=== PATIENT | male | born 1965 | race Caucasian/White ===

== ENCOUNTER 2018-12-11 12:04 | Emergency (ER) | payer OTHER, SELFPAY ==
[2018-12-11 12:05] VITALS: BP 133/77; PULSE 91; RESP 16; TEMP 36.6; O2SAT 97; BMI 23.6
--- NOTE | 2018-12-11 13:14 | VDLE_ITS ---
Reason For Study: LLE PAIN RIGHT LEFT CFV is compressible, spontaneous, phasic, GSV is normal. competent and demonstrates normal CFV is compressible, spontaneous, phasic, augmentation. competent, and demonstrates normal Procedure augmentation. Exam performed portable in ED. FV is compressible, spontaneous, phasic, The exam was diagnostic. competent and demonstrates normal A preliminary report was called and/or faxed augmentation. to ED @ 2:30 pm. POP V is compressible, spontaneous, phasic, competent and demonstrates normal augmentation. T/P Trunk is compressible. PTV is compressible. LT PerV is compressible. Interpretation Summary There is no evidence of left lower extremity deep vein thrombosis. Left great saphenous vein appears patent and compressible segmentally. Patent and compressible right common femoral vein Ordering Physician: Gabo Leon Referring Physician: NO PCP Performed By: Caterina Anderson, LIBERTY, RVT
--- NOTE | 2018-12-11 13:40 | RAD_ITS ---
STUDY: X-RAY - LEFT KNEE REASON FOR EXAM: Male, 52 years old. Knee pain TECHNIQUE: 4 view(s) of the knee. COMPARISON: None. FINDINGS: Normal visualized distal femur. Normal visualized proximal tibia and fibula. Normal proximal tibiofibular articulation. Normal medial femorotibial compartment. Normal lateral femorotibial compartment. Normal patellofemoral articulation. The soft tissue structures are unremarkable. RAD/Knee 4 or More Views IMPRESSION: Normal x-ray examination of the knee. Electronically Signed: Josue Chun MD at 14:01 EDT Tel , Service support ,
--- NOTE | 2018-12-11 15:29 | ED.DCSUM_ITS ---
- ER Visit Summary Date of Service: 12/11/18 Chief Complaint: [Left leg pain] History of Present Illness: The patient is a 52 M [presents to the emergency department with complaint of pain in his left leg for about a week and a half. Patient states that he fell a year ago and broke his left hip but has had no recent injury. Patient complains of diffuse pain to his knee down to his foot. Today he noticed some numbness and tingling to his foot. Patient denies any pain in his back. He denies any sciatic pain although he has had sciatica in the past and has had back surgery for it. Patient states that he started working 10 hours a day and is been on his feet for quite a bit. He denies any weakness in the extremity. Patient denies any injury to his leg.] Physical Examination: [HEENT-PERRLA, EOMI. Cranial nerves II through XII grossly intact. TMs clear. Mucous membranes moist. No adenopathy. Cardiovascular-regular rate and rhythm without murmur or ectopy Lungs-clear to auscultation, chest wall stable without crepitus or subcu emphysema Abdomen-normoactive bowel sounds, soft, nontender, no rebound or rigidity, no peritoneal signs. Extremities-intact ?4, normal range of motion, normal pulses, atraumatic. Left leg-patient has some mild diffuse tenderness palpation of the knee. There is no erythema or warmth or effusion noted. Patient has normal popliteal, dorsal pedal, and posterior tibial pulses. Patient has normal cap refill and sensation.] Test Results: [Venous Doppler of the left lower extremity was negative for DVT. Patient also had x-rays of the left knee which were normal.] Emergency Department Course and Treatment: [] Treatment Plan: [Patient will be given a prescription for Larue for pain. Patient referred to primary care physician for follow-up.] Disposition: [Discharged home stable condition] Impression: [Left knee pain-etiology uncertain Paresthesias left foot] This note was generated with [employer] dictation software. It may contain incorrect words, spelling, and punctuation that were not noted in review of the chart prior to signing ED Disposition - Plan for ED Patient: Referrals: Care Physician,No Primary [Primary Care Provider] -
--- NOTE | 2018-12-11 15:32 | DCINST.ED_ITS ---
ED Disposition - Plan for ED Patient: Instructions: KNEE PAIN, Uncertain Cause, Paraesthesias Prescriptions: Hydrocodone Bitart/Apap 5-325 [[place] 5MG-325MG] 1 tab PO Q4H PRN PRN 2 Days #10 tab PRN Reason: Pain Prescription Printed Referrals: Care Physician,No Primary [Primary Care Provider] - Chip Michael MD [STAFF PHYSICIAN] - 3-5 Days
== END 2018-12-11 15:48 | disposition home or self-care (01) ==
PROVIDERS: Emergency Provider Emergency Medicine
DX: M25.562 Pain in left knee (principal); R20.2 Paresthesia of skin; Z72.0 Tobacco use
CPT/HCPCS: 73564; 93971; 99282

== ENCOUNTER 2022-01-29 16:11 | Emergency (ER) | payer BC, SELFPAY ==
[2022-01-29 16:13] VITALS: BP 135/101; PULSE 66; RESP 18; TEMP 37.2; O2SAT 98; BMI 24.3
--- NOTE | 2022-01-29 16:22 | NURSING ---
NO OLD EKGS
--- NOTE | 2022-01-29 16:30 | EDS_ITS ---
HPI History of Present Illness Chief Complaint: Syncope Narrative Narrative: 56-year-old male presenting with an episode of syncope that happened today. He states he called into work because he was not feeling well. He describes lightheadedness and a little bit of nausea. He did not have any chest pain. He states he blacked out while walking to the bathroom. He woke up and did not feel as if anything hurt. Patient does not feel short of breath. Has not had a fever, chills, body aches. He denies any cardiac problems. He states he has a mild cough but its his typical smoker's cough. He is not short of breath. He states he does still have some residual lightheadedness but does not describe it as vertiginous in nature. He states he does not go to a regular doctor often at all. He is not been in years. He states other than today feeling nauseous has been eating and drinking without difficulty. He states he does not eat like he should but he is able to eat. He is making urine and stool. [facility] Medical History History of hip fracture Home Medications lansoprazole 30 mg capsule,delayed release 30 mg PO DAILY 12/11/18 [History Last Taken Unknown] Allergy/AdvReac Type Severity Reaction Status Date / Time No Known Allergies Allergy Verified 01/29/22 16:12 Social History Smoking Status: Current every day smoker tobacco type: cigarettes ROS ROS ED Constitutional Constitutional ED: Denies chills or fever(s) Eyes Eyes: Denies change in vision ENT ENT ED: Denies rhinorrhea or sore throat Cardiovascular Cardiovascular: Reports other Details: Syncopal episode ; Denies chest pain or palpitations Respiratory/Chest Respiratory/Chest: Denies cough or dyspnea Gastrointestinal Gastrointestinal: Denies abdominal pain or constipation Genitourinary Genitourinary ED: Denies dysuria or hematuria Musculoskeletal Musculoskeletal: Denies arthralgias or back pain Integumentary Denies abscess Neurologic Neurologic: Denies headache(s) Psychiatric Psychiatric: Denies anxiety or depression EXAM Physical Exam Const Vital Signs: 01/29/22 16:13 01/29/22 16:30 01/29/22 16:30 Temperature 98.9 F Temperature Source Temporal Pulse Rate 66 Pulse Rate [Lying] Pulse Rate [Sitting (for 1 minute prior to obtaining)] Pulse Rate [Standing (for 1 minute prior to obtaining)] Respiratory Rate 18 Respiratory Effort Normal Respiratory Pattern Normal Blood Pressure 135/101 H Blood Pressure [Lying] Blood Pressure [Sitting (for 1 minute prior to obtaining)] Blood Pressure [Standing (for 1 minute prior to obtaining)] Blood Pressure Mean 112 Blood Pressure Mean [Lying] Blood Pressure Mean [Sitting (for 1 minute prior to obtaining)] Blood Pressure Mean [Standing (for 1 minute prior to obtaining)] Pulse Ox 98 Oxygen Delivery Method Room Air Room Air 01/29/22 16:41 01/29/22 18:16 Temperature Temperature Source Pulse Rate 65 Pulse Rate [Lying] 62 Pulse Rate [Sitting (for 1 minute prior to obtaining)] 61 Pulse Rate [Standing (for 1 minute prior to obtaining)] 64 Respiratory Rate 14 Respiratory Effort Respiratory Pattern Blood Pressure 134/82 H Blood Pressure [Lying] 132/89 H Blood Pressure [Sitting (for 1 minute prior to obtaining)] 130/100 H Blood Pressure [Standing (for 1 minute prior to obtaining)] 121/92 H Blood Pressure Mean 99 Blood Pressure Mean [Lying] 103 Blood Pressure Mean [Sitting (for 1 minute prior to obtaining)] 110 Blood Pressure Mean [Standing (for 1 minute prior to obtaining)] 101 Pulse Ox 98 Oxygen Delivery Method Room Air Positive well nourished General Appearance ED: NAD; Negative for pallor HEENT Reports moist mucous membranes Negative for trauma Eyes PERRL and EOMs intact bilaterally General Eye ED: Negative for pale conjunctiva or scleral icterus Chest Wall inspection of chest normal and palpation of chest normal Resp normal respiratory effort and clear to auscultation bilaterally Auscultation: Negative for rales, rhonchi or wheezes Cardio regular rate and regular rhythm GI normal to inspection, nondistended, normoactive bowel sounds Neuro oriented x3 and CN's II-XII intact bilaterally Sensorium / Orientation: alert Motor Exam: strength 5/5 throughout Psych mental status grossly normal Skin General Skin Exam: Negative for jaundice or pallor MDM MDM MDM Narrative Medical decision making narrative: Patient presenting with an episode of syncope. He feels a little bit lightheaded currently on initial exam. EKG on my interpretation shows a normal sinus rhythm with a ventricular rate of 66 bpm without sign of ischemic change or dysrhythmia. Chest x-ray my interpretation shows no acute cardiopulmonary process the radiologist agree. CBC shows a white blood cell count of 9.7. Hemoglobin slightly concentrated at 16.6. Platelets normal at 199. Renal function and electrolytes are normal. High-sensitivity troponin is 6. Orthostatic vitals were normal and the patient was given a liter of IV fluids. CT of the brain was obtained because the patient had a syncopal episode and hit his head with loss of consciousness. There is no sign of intracranial hemorrhage or other acute process. Patient's vital signs appear to be normal. At this point he has a normal work-up. I think he stable for discharge home. He will be given a PCP for follow-up. Impression: 1. syncope 2. Closed head injury 3. Lightheaded Lab Data Labs: Laboratory Results - last 24 hr 01/29/22 01/29/22 16:25 16:25 WBC 9.7 RBC 4.47 L Hgb 16.6 H Hct 47.1 MCV 105.4 H MCH 37.1 H MCHC 35.2 RDW Std Deviation 51.8 H RDW Coeff of Rebeka 13.2 Plt Count 199 MPV 10.1 Immature Gran % (Auto) 0.200 Neut % (Auto) 37.9 L Lymph % (Auto) 48.3 H [place] % (Auto) 12.8 H Eos % (Auto) 0.5 Baso % (Auto) 0.3 Absolute Neuts (auto) 3.7 Absolute Lymphs (auto) 4.69 H Nucleated RBC % 0 Sodium 138 Potassium 3.5 Chloride 103 Carbon Dioxide 29.0 Anion Gap 6 BUN 8 Creatinine 0.78 Estim Creat Clear Calc 112.63 Est GFR (MDRD) Af Amer 132 Est GFR (MDRD) Non-Af 109 BUN/Creatinine Ratio 10.2 Glucose 98 Calcium 9.2 Troponin I High Sens 6 Radiography Diagnostic Testing: Clinical Impression(s) from Imaging Studies Brain CT 01/29/22 16:35 IMPRESSION: Normal unenhanced CT scan of the brain. Electronically Signed: Di Keller MD at 17:15 EDT Reading Location ID and State: [id number] / Tel , Service support , Chest X-Ray 01/29/22 16:55 IMPRESSION: Normal x-ray examination of the chest. Electronically Signed: Di Keller MD at 17:15 EDT , Discharge Plan Triage Chief Complaint: Syncope ED Provider: Dakota Millan Dx/Rx/DC Orders Instructions: ED Fainting, Uncertain Cause Prescriptions: No Action lansoprazole 30 MG capsule 30 mg PO DAILY Primary Care Provider: Care Physician,No Primary Referrals: Nathalie Bolden MD [Med Staff - Nursery Worker] - As soon as possible Care Physician,No Primary [Primary Care Provider] - Disposition Disposition: Home, Self Care
--- NOTE | 2022-01-29 16:30 | EKG12_ITS ---
Test Reason : SYNCOPE Blood Pressure : / mmHG Vent. Rate : 066 BPM Atrial Rate : 066 BPM P-R Int : 156 ms QRS Dur : 092 ms QT Int : 396 ms P-R-T Axes : 045 011 028 degrees QTc Int : 415 ms Normal sinus rhythm Normal ECG Confirmed by MARGARITO BLANCHARD, FOX ([id number]), digital editor SALONI AGEE ([id number]) on 02/01/2022 9:38:59 AM Referred By: KASH Confirmed By:FOX PIMENTEL MD
--- NOTE | 2022-01-29 16:35 | CT_ITS ---
STUDY: CT BRAIN WITHOUT CONTRAST REASON FOR EXAM: Male, 56 years old. head trauma RADIATION DOSAGE (If Supplied By Facility): CTDIvol = ( 44.99 ) mGy, DLP = ( 812.98 ) mGycm TECHNIQUE: Transaxial CT imaging of the brain was performed without administration of intravenous contrast material. Individualized dose optimization techniques were used for this CT. COMPARISON: No relevant priors. FINDINGS: Normal soft tissue structures. Normal calvarium. Normal size ventricles and extra-axial spaces for the patient''s age. Normal white matter tracts of the cerebral hemispheres. Normal basal ganglia and thalami. Normal brainstem. Normal cerebellum. There is no intracranial hemorrhage. There are no findings of an acute ischemic infarction. Normal visualized paranasal sinuses. CT/Brain/Head without Contrast IMPRESSION: Normal unenhanced CT scan of the brain. Electronically Signed: Di Keller MD at 17:15 EDT Reading Location ID and State: [id number] / Tel , Service support ,
[2022-01-29] MEDS: 0.9% Normal Saline 1,000 ML 1000 ML IV (16:40)
[2022-01-29 16:41] VITALS: BP 121/92; BP 130/100; BP 132/89; PULSE 61; PULSE 62; PULSE 64
[2022-01-29 16:44] LABS: Absolute Lymphocyte Count 4.69 X10^3/uL (0.83-4.51); Absolute Neutrophil Count 3.7 X10^3/uL (2.0-7.7); Basophil# 0.03 X10^3/uL; Basophil% 0.3 % (0-1); Eosinophil# 0.05 X10^3/uL; Eosinophils% 0.5 % (0-5); Hematocrit 47.1 % (40-54); Hemoglobin 16.6 g/dL (13.0-16.5); Lymphocyte # 4.69 X10^3/ul (0.83-4.51); Lymphocyte % 48.3 % (19-41); Mean Corp Hgb Conc 35.2 g/dL (32-36); Mean Corpuscular Hgb 37.1 pg (27.0-32.0); Mean Corpuscular Volume 105.4 fL (80-94); Mean Platelet Vol. 10.1 fl (6.2-12.0); Monocyte# 1.24 X10^3/uL; Monocyte% 12.8 % (0-10); NRBC Flagged by Analyzer 0 % (0-5); Neutrophil # 3.69 X10^3/uL (2.7-7.7); Neutrophil % 37.9 % (47-70); Platelet Count 199 K/mm3 (150-450); RBC Distribution Width CV 13.2 % (11.6-14.6); RBC Distribution Width SD 51.8 fl (35.1-43.9); Red Blood Count 4.47 M/mm3 (4.6-6.2); White Blood Count 9.7 K/mm3 (4.4-11.0)
--- NOTE | 2022-01-29 16:55 | RAD_ITS ---
STUDY: X-RAY CHEST REASON FOR EXAM: Male, 56 years old. chest pain TECHNIQUE: Single AP portable view of the chest. COMPARISON: None. FINDINGS: The lungs are clear and expanded. There is no demonstrated pleural abnormality. Normal size heart. Normal mediastinum and anthony. Normal visualized pulmonary arteries. Normal visualized aortic arch and descending thoracic aorta. Normal visualized thoracic spine. Normal visualized ribs, clavicles, and shoulders. There is no demonstrated abnormality of the visualized soft tissue structures of the upper abdomen. RAD/Chest 1 View (Portable) IMPRESSION: Normal x-ray examination of the chest. Electronically Signed: Di Keller MD at 17:15 EDT Reading Location ID and State: [id number] / Tel , Service support ,
[2022-01-29 17:01] LABS: Anion Gap 6 (5-15); BUN 8 mg/dL (7-18); BUN/Creat Ratio 10.2 RATIO (10-20); Calcium,Total 9.2 mg/dL (8.5-10.1); Chloride 103 mmol/L (98-107); Creatinine, Serum 0.78 mg/dL (0.70-1.30); EST Glomerular Filtration Rate 109 mL/min (>60); Est Glom Filt Rate - Afr Amer 132 mL/min (>60); Estimated Creatinine Clearance 112.63 ml/min; Glucose 98 mg/dL (74-106); Potassium 3.5 mmol/L (3.5-5.1); Sodium Level 138 mmol/L (136-145); Troponin-I HS (w/2H Reflex) 6 pg/mL (3.0-78.0)
[2022-01-29 18:16] VITALS: BP 134/82; PULSE 65; RESP 14; O2SAT 98
[2022-01-29 18:29] VITALS: BP 133/97; PULSE 71; RESP 16; O2SAT 99
[2022-01-29 18:39] LABS: Reflex Troponin-HS? (from REC) Y
== END 2022-01-29 18:29 | disposition home or self-care (01) ==
PROVIDERS: Emergency Provider Student in an Organized Health Care Education/Training Program; Visit Provider Student in an Organized Health Care Education/Training Program
DX: R55 Syncope and collapse (principal); J41.0 Simple chronic bronchitis; F17.210 Nicotine dependence, cigarettes, uncomplicated
CPT/HCPCS: 70450; 71045; 80048; 84484; 85025; 87811; 93005; 96361; 96374; 99285; J7030; A4216; J2405

== ENCOUNTER → 2023-06-15 | Outpatient (CLI) | payer BC, SELFPAY ==
--- NOTE | 2023-06-15 12:16 | NEURO ---
NCS and/or EMG Patient Report Ordering Doctor: Zak Brunner DATE OF SERVICE: 06/15/23 Chin presents for electrodiagnostic testing of the upper limbs. He reports numbness and tingling of both hands, worse on the right side. Electrodiagnostic findings: Right median motor nerve demonstrates prolonged latency with normal amplitude and conduction velocity. Left median motor nerve demonstrates normal distal latency and amplitude with borderline reduced conduction velocity. Ulnar motor nerve demonstrates normal distal latency and amplitude bilaterally. There is decrease in conduction across the elbow bilaterally. Prolonged right median and ulnar F?waves. Absent right median sensory latency at the wrist. Prolonged left median sensory latency. Absent right median palmar latency. Needle EMG testing was performed in the upper limbs. All muscles tested showed no evidence of denervation with normal motor unit action potentials. Electrodiagnostic impression: This is an abnormal study in the upper limbs 1. Electrodiagnostic findings suggestive of bilateral median mononeuropathy. This is consistent with a moderate right carpal tunnel syndrome and a mild left carpal tunnel syndrome. 2. Electrodiagnostic evidence suggestive of bilateral ulnar neuropathy, consistent with a mild to moderate bilateral cubital tunnel syndrome. 3. No electrodiagnostic evidence is noted for cervical radiculopathy. Multi Select Codes Neurology Neurology Interp Codes: 73849-80 Musc test done w/n test comp (interp) (2) and 68550-09 Nrv cndj test 13/> studies (interp)
== END | disposition home or self-care (01) ==
LOC: PSN 10:16
PROVIDERS: Referring Provider Orthopaedic Surgery; Visit Provider Orthopaedic Surgery
DX: G56.03 Carpal tunnel syndrome, bilateral upper limbs (principal)
CPT/HCPCS: 95886; 95913

== ENCOUNTER 2024-08-02 14:34 | Emergency (ER) | payer BC, SELFPAY ==
[2024-08-02 14:35] VITALS: BP 134/69; PULSE 98; RESP 16; TEMP 36.4; O2SAT 97; BMI 20.7
--- NOTE | 2024-08-02 15:21 | ED.VIS.LOWEX ---
HPI History of Present Illness HPI Narrative: 58-year-old male history of reflux. Was cutting up metal scrap in his home with a concrete saw and lacerated the left lower lateral aspect of his left thigh above the knee. Occurred about an hour ago. Unsure of his last tetanus shot. Denies any other complaints or injuries. Chief Complaint: Laceration Informant: patient Occured/Mechanism Mechanism/Context: Yes injury Onset/Context/Timing Onset: Today and Hours (Less than 1 hour ago.) Context: Sudden Onset Timing: Continuous Quality of Pain: Sharp Current Severity: Mild Maximum Severity: Mild Associated Symptoms Associated Symptoms: Negative for Parasthesia, Weakness or Loss of Funtion Narrative Narrative: 58-year-old male left lower lateral thigh laceration about an hour ago. Unsure last tetanus. Tetanus Immunization: Unknown Prior similar symptoms: No Recent Illness/Hospitalization: No PFSH PFS Medical History History of hip fracture Home Medications ?Medication ?Instructions ?Recorded ?Last Taken ?Type lansoprazole 30 mg capsule,delayed 30 mg PO DAILY 12/11/18 Unknown History release Allergy/AdvReac Type Severity Reaction Status Date / Time No Known Allergies Allergy Verified 08/02/24 14:37 Social History (Updated 08/02/24 @ 15:41 by Thalia Rob) housing: house Smoking Status: Current every day smoker tobacco type: cigarettes ROS ROS ED ROS Narrative Denies recent illness. Constitutional Constitutional ED: Denies chills or fever(s) Eyes Eyes: Denies blurry vision ENT ENT ED: Denies ear pain Cardiovascular Cardiovascular: Denies chest pain Respiratory/Chest Respiratory/Chest: Denies cough Gastrointestinal Gastrointestinal: Denies abdominal pain Genitourinary Genitourinary ED: Denies dysuria Musculoskeletal Musculoskeletal: Denies arthralgias Integumentary Denies abscess Neurologic Neurologic: Denies headache(s) Psychiatric Psychiatric: Denies anxiety Endocrine Endocrinology: Denies polydipsia Hematologic/Lymphatic Hematologic/Lymphatic: Denies easy bleeding Allergic/Immunologic Allergic/Immunologic ED: Denies mouth swelling, tongue swelling or urticaria EXAM Physical Exam Narrative Exam Narrative: Well-appearing 58-year-old male. Sitting upright in bed. Vital signs stable afebrile. No one else present with him. H EENT exam pupils round reactive light. Mytrex membranes. No trauma that was face or head. Neck nontender. Back nontender. Lungs clear to auscultation bilaterally. Heart regular rhythm rate about 95 no murmur. Chest wall ribs nontender. Abdomen soft nontender. Well-healed prior midline surgical scar. Moving all 4 extremities. Neurovascularly intact. Specifically left hip, left knee left ankle and foot nontender. Full range of motion. Normal strength. Normal sensation. Normal dorsi plantarflexion. Normal flexion extension of his left hip, left knee and left ankle. Proximal and lateral to the left knee he has a 4 inch laceration involving skin and subcu tissue. Currently there is no active bleeding. No pulsatile bleeding. No foreign body. Neurologically is awake alert. Answering questions following commands. No focal motor or sensory deficit. Const Vital Signs: 08/02/24 14:35 Temperature 97.6 F L Temperature Source Temporal Pulse Rate 98 Respiratory Rate 16 Blood Pressure 134/69 H Blood Pressure Mean 90 Pulse Ox 97 Oxygen Delivery Method Room Air Positive well nourished and well developed; Negative for obese, cachectic, contractures or unkempt General Appearance ED: well developed and NAD; Negative for unkempt, cachectic or contractures Nutritional Appearance: Negative for cachectic or obese HEENT Reports moist mucous membranes normocephalic and atraumatic; Negative for trauma or tenderness Eyes PERRL Neck full ROM and supple Chest Wall inspection of chest normal and palpation of chest normal Resp normal respiratory effort, no retractions and clear to auscultation bilaterally Auscultation: Negative for rales, rhonchi, wheezes or diminished lung sounds Cardio regular rate, regular rhythm, S1 normal heart sound, S2 normal heart sound and no murmurs GI non-tender, non-distended and no masses Auscultation: normoactive bowel sounds Palpation: soft; Negative for tender, guarding or rebound tenderness present Back/Spine no CVA tenderness General Back: Negative for CVA tenderness or swelling Cervical Spine: Negative for cervical spine tenderness Thoracic Spine / Upper Back: Negative for thoracic spinal tenderness Lumbar Spine / Lower Back: Negative for lumbar spinal tenderness Extremity full ROM; Negative for normal to inspection Extremity Narrative: Left lower lateral thigh laceration. Involving the skin and subcu tissue. About 4 inches in length. No active bleeding. No pulsatile bleeding. No hematoma. Full range of motion of the knee entire leg. Normal touch sensation. Normal motor strength. Will need to be repaired. General Extremety ED: Negative for cyanosis or edema General Extremity: Negative for cyanosis or edema Neuro oriented x3, CN's II-XII intact bilaterally and moves all extremities Sensorium / Orientation: alert, oriented to person, oriented to place and oriented to time; Negative for orientation impaired, confused, lethargic or stuporous Motor Exam: strength 5/5 throughout Psych mental status grossly normal Appearance: Negative for unkempt Speech: No other Mood & Affect: Negative for anxious Skin No no wounds Skin Narrative: Laceration left lateral lower thigh. Lesions: no lesions Rashes: no rashes MDM MDM MDM Narrative Medical decision making narrative: 58-year-old male left lateral thigh laceration will need to be repaired. Wound will be cleaned, irrigated and explored. Locally anesthetized. Closed. Tetanus will be updated. This is not work-related according to the patient. History & Record Review Discussion w/independent historian: Patient Procedures Lacerations Left lower lateral thigh laceration repair:: Length: 5 in Depth: Sub Q Shape: Linear Prep: Shure-Clens Laceration repair: Irrigated, Lidocaine, Local, Skin sutures and Wound explored Number of Sutures/Ethan: 6 Suture Information: Ethilon and 4-0 Comment: Left lower lateral leg laceration. Approximately 5 inches. Involves skin and subcu tissue. Locally anesthetized with lidocaine. Cleaned with Shcamron-Clens. Washed and irrigated with saline. Explored. Closed using 6, 4-0 Ethilon sutures. Simple interrupted. Proper hemostasis wound closure obtained. Patient was discharged on wound care and suture removal in 10 days. Tetanus was updated. Patient tolerated well. Discharge Plan Triage Chief Complaint: Laceration ED Provider: Dave Day Dx/Rx/DC Orders Clinical Impression: Laceration of left thigh Instructions: ED Laceration, All Closures Prescriptions: No Action lansoprazole 30 MG capsule 30 mg PO DAILY Primary Care Provider: Care Physician,No Primary Referrals: Manjeet Flynn MD [Med Staff - Bad Cloth Checker] - 10 Day for suture removal Care Physician,No Primary [Primary Care Provider] - Activity Restrictions/Additional Instructions: Clean wound daily with soap and water or peroxide and water. Dry thoroughly. Apply antibiotic ointment twice daily to prevent infection. Watch for any signs of infection such as redness, pus, swelling, streaks or fevers seen return. Stitches out in 10 days. You may have them taken out here. Or your doctor's office. Or you can take about yourself. Any problems return. We updated your tetanus shot that is good for at least 5 if not 10 years. Print Language: Tristanian Disposition Disposition: Home, Self Care
[2024-08-02] MEDS: Diphth,Pertuss(Acell),Tet Vac 0.5 ML Vial IM (15:26)
[2024-08-02] MEDS: Lidocaine 1% (20 ml mdv) 20 ML Vial 15 ML INFILT (15:26)
== END 2024-08-02 15:52 | disposition home or self-care (01) ==
PROVIDERS: Emergency Provider Emergency Medicine; Visit Provider Emergency Medicine
DX: S71.112A Laceration without foreign body, left thigh, initial encounter (principal); F17.210 Nicotine dependence, cigarettes, uncomplicated; W29.8XXA Contact with other powered hand tools and household machinery, initial encounter; Y93.89 Activity, other specified; Y92.009 Unspecified place in unspecified non-institutional (private) residence as the place of occurrence of the external cause; K21.9 Gastro-esophageal reflux disease without esophagitis; Z79.899 Other long term (current) drug therapy; Z23 Encounter for immunization
CPT/HCPCS: 12004; 90715; 99283

== ENCOUNTER 2024-08-16 08:12 | Emergency (ER) | payer BC, SELFPAY ==
[2024-08-16 08:12] VITALS: BP 129/90; PULSE 67; RESP 18; TEMP 36.6; O2SAT 98; BMI 23.6
--- NOTE | 2024-08-16 08:44 | ED.VIS.LOWEX ---
HPI History of Present Illness Chief Complaint: Wound Check Informant: patient Narrative Narrative: 58-year-old male presenting to the emergency room with wound check of the left thigh. Patient states on 02 August he had a laceration to the distal lateral left thigh. States he had stitches in for 10 days and then removed but its opened up. He states it opens up more when he fully bends at the left knee. He does not have primary care. [facility] Medical History History of hip fracture Home Medications ?Medication ?Instructions ?Recorded ?Last Taken ?Type lansoprazole 30 mg capsule,delayed 30 mg PO DAILY 12/11/18 Unknown History release Allergy/AdvReac Type Severity Reaction Status Date / Time No Known Allergies Allergy Verified 08/02/24 14:37 Social History housing: house Smoking Status: Current every day smoker tobacco type: cigarettes ROS ROS ED Constitutional Constitutional ED: Denies chills or weight loss Eyes Eyes: Denies change in vision or diplopia ENT ENT ED: Denies ear pain, rhinorrhea or sore throat Cardiovascular Cardiovascular: Denies chest pain, orthopnea, palpitations or racing heartbeat Respiratory/Chest Respiratory/Chest: Denies cough, dyspnea or orthopnea Gastrointestinal Gastrointestinal: Denies abdominal pain, diarrhea, nausea or vomiting Genitourinary Genitourinary ED: Denies dysuria, hematuria or urinary frequency Musculoskeletal Musculoskeletal: Denies arthralgias or myalgias Integumentary Reports other Details: See history of present illness ; Denies abscess or rash Neurologic Neurologic: Denies headache(s) or weakness Psychiatric Psychiatric: Denies anxiety, depression, suicidal ideation or suicidal thoughts Endocrine Endocrinology: Denies polydipsia, polyphagia or polyuria Allergic/Immunologic Allergic/Immunologic ED: Denies mouth swelling, tongue swelling or urticaria EXAM Physical Exam Const Vital Signs: 08/16/24 08:12 Temperature 97.9 F Temperature Source Oral Pulse Rate 67 Respiratory Rate 18 Blood Pressure 129/90 H Blood Pressure Mean 103 Pulse Ox 98 Oxygen Delivery Method Room Air Positive well nourished and well developed General Appearance ED: well developed HEENT Reports normocephalic, head/scalp atraumatic and moist mucous membranes Eyes PERRL and EOMs intact bilaterally Neck no lymphadenopathy, supple and no JVD Resp normal respiratory effort and clear to auscultation bilaterally Cardio regular rate, regular rhythm and no murmurs GI normal to inspection, nondistended, normoactive bowel sounds and non-tender Palpation: soft Back/Spine no CVA tenderness and normal ROM Extremity normal to inspection General Extremety ED: Negative for edema General Extremity: Negative for edema Neuro oriented x3 and CN's II-XII intact bilaterally Sensorium / Orientation: alert Motor Exam: strength 5/5 throughout Psych mental status grossly normal Mood & Affect: Negative for depressed or tearful Skin no rashes or lesions noted Skin Narrative: Distal lateral left thigh demonstrates a healing laceration of about 4 cm in length. The posterior 3-1/2 cm of the wound has opened up. There is no surrounding erythema. I do not appreciate purulence. Most of the dehiscence has dried granulation tissue there is a small area in the center of about 1/2 cm length where it is not granulated in. MDM MDM MDM Narrative Medical decision making narrative: Differential diagnosis includes but not limited to cellulitis infected wound wound dehiscence Clinically the wound does not appear infected. I spoke with the patient presented a couple options. 1 is we allow it to granulate in and heal by secondary intention. The second is that we debride the granulation tissue in the wound edges and attempt to place suture or brett to help keep it closed. With the understanding that this is a higher risk of infection. Using a mutually agreed upon plan of care the patient will continue to do local wound care and we will allow the wound to heal by secondary intention. I have asked that he follow-up with the wound clinic in about a week. History & Record Review Discussion w/independent historian: Patient Discharge Plan Triage Chief Complaint: Wound Check ED Provider: Farshad Dunaway Dx/Rx/DC Orders Clinical Impression: Dehiscence of wound of skin Instructions: Wound Dehiscence Prescriptions: No Action lansoprazole 30 MG capsule 30 mg PO DAILY Primary Care Provider: Care Physician,No Primary Referrals: Care Physician,No Primary [Primary Care Provider] - [facility] and [Non-Staff] - 1 Week Activity Restrictions/Additional Instructions: I would recommend antibiotic ointment 1 time a day. Keeping the wound clean. Soap and water is fine. Hold normal and recommend using Amaury wrap on the knee to help limit full bending of the Please follow-up in clinic. Print Language: Afghan Disposition Disposition: Home, Self Care
== END 2024-08-16 08:59 | disposition home or self-care (01) ==
PROVIDERS: Emergency Provider Emergency Medicine; Visit Provider Emergency Medicine
DX: T81.30XA Disruption of wound, unspecified, initial encounter (principal); F17.210 Nicotine dependence, cigarettes, uncomplicated
CPT/HCPCS: 99282

== ENCOUNTER 2025-04-11 08:13 | Emergency (ER) | payer BC, SELFPAY ==
[2025-04-11 08:14] VITALS: BP 141/98; PULSE 75; RESP 18; TEMP 36.4; O2SAT 100
[2025-04-11 08:17] VITALS: BP 130/101; PULSE 68; RESP 13; TEMP 37.1; O2SAT 98; BMI 20.4
--- NOTE | 2025-04-11 08:25 | CT_ITS ---
PROCEDURE: SOFT TISSUE NECK WITH CONTRAST 04/11/2025 REASON FOR EXAM: RT SIDED LYMPH NODE, NUMBNESS, MASS? TECHNIQUE: Procedure Code: CTNEW Modality: CT Procedure: SOFT TISSUE NECK WITH CONTRAST CONTRAST: Isovue 370 VOLUME: 100 mL One or more dose reduction techniques were used (e.g., Automated exposure control, adjustment of the mA and/or kV according to patient size, use of iterative reconstruction technique). RADIATION DOSE SUMMARY: CTDlvol: 12.98 mGy DLP: 379.39 mGycm COMPARISON: None FINDINGS: Airway: Midline and patent. Salivary glands: There is heterogeneous enlargement of the right parotid gland with the heterogeneous IV contrast uptake. I also suspect a heterogeneous enhancing lymph node in the anterior triangle of the right side of the neck measuring 9.2 cm. Thyroid: Unremarkable. Vasculature: Mild calcified plaque of the carotid arteries. Orbits: Unremarkable at visualized levels. Paranasal sinuses and mastoids: Grossly clear at visualized levels. Lung apices: Mild emphysematous changes. Upper mediastinum: Visualized mediastinum is unremarkable. Bones: Multilevel degenerative changes of the spine. Other: CT/Soft Tissue Neck WITH Contrast IMPRESSION: Heterogeneous enlargement of the right parotid gland with heterogeneous enhance ment as well as a lymph node in the anterior triangle of the right side of the neck. A neoplastic process should be ruled o ut. Reading Location: [place] [id number]
--- NOTE | 2025-04-11 08:27 | EX.ED.DYSGE1 ---
HPI History of Present Illness Chief Complaint: Numb/Ting Narrative Narrative: Patient is a 59-year-old male presenting to the emergency department for 1 month of right-sided neck swelling, painful swallowing and facial numbness. Patient states he does not go to the doctor's, denies any past medical history that is known. Patient states he does smoke. He reports that the symptoms have been going on for a month and today at work he was fed up with the symptoms and decided to come be seen in the emergency department. He reports painful swallowing with drinking and eating. Reports right sided neck swelling and facial numbness. He denies any known weight loss. Feels fine otherwise, denying fever, chills, chest pain, shortness of breath, abdominal pain, nausea, vomiting, diarrhea, dysuria or hematuria. [facility] Medical History History of hip fracture Home Medications ?Medication ?Instructions ?Recorded ?Last Taken ?Type lansoprazole 30 mg capsule,delayed 30 mg PO DAILY 12/11/18 Unknown History release Allergy/AdvReac Type Severity Reaction Status Date / Time No Known Allergies Allergy Verified 04/11/25 08:16 Family History unable to obtain Surgical History unable to obtain Social History housing: house Smoking Status: Current every day smoker tobacco type: cigarettes ROS ROS ED ROS Narrative See HPI EXAM Physical Exam Narrative Exam Narrative: Vital signs: Reviewed General: Alert and oriented x 3. No acute distress. Smells of cigarette smoke. Chronically ill-appearing. Nontoxic. HEENT: Head is normocephalic and atraumatic, sinuses nontender, pupils equal round and reactive. Nares are patent. Oropharynx and throat exams normal. No swelling noted to the posterior oropharynx or inner oral mucosa on the right. Tongue is midline. Uvula midline. No elevation of the tongue. There is no mass or swelling of the right cheek. External ears are unremarkable bilaterally. No swelling in front of or behind the ear. The right TM is unable to be visualized due to cerumen. Normal ear canal. Neck: Supple, trachea midline. There is a firm nontender right sided submandibular lymph node. Cardiovascular: Regular rate and rhythm, no murmurs. No rubs or gallops. Normal S1 and S2 Respiratory: Clear to auscultation bilaterally. No wheezes, rales, rhonchi Abdominal: Soft and nontender. Normal bowel sounds. No guarding or rebound. Nonsurgical abdomen Extremities: No tenderness. No bruising. Normal range of motion. Normal sensation. Skin: No rash or redness. Neurological: There is numbness to the V2 and V3 distributions of the right sided facial nerve. Otherwise cranial nerves II through XII are grossly intact. Normal strength and sensation. Normal cerebellar function The rest of the physical exam is unremarkable Const Vital Signs: 04/11/25 08:14 04/11/25 08:17 04/11/25 08:17 Temperature 97.5 F L 98.7 F Temperature Source Temporal Oral Pulse Rate 75 68 68 Respiratory Rate 18 13 13 Blood Pressure 141/98 H 130/101 H 130/101 H Blood Pressure Mean 112 110 110 Pulse Ox 100 98 98 Oxygen Delivery Method Room Air Room Air 04/11/25 09:30 04/11/25 10:02 04/11/25 10:41 Temperature 98 F 98.3 F 98.3 F Temperature Source Oral Oral Pulse Rate 62 64 63 Respiratory Rate 13 13 16 Blood Pressure 121/81 H 126/81 H 130/93 H Blood Pressure Mean 94 96 105 Pulse Ox 100 100 100 Oxygen Delivery Method Room Air Room Air MDM MDM MDM Narrative Medical decision making narrative: Patient is a 59-year-old male presenting to the emergency department for painful swallowing, numbness to the right side of his face and neck swelling that he noticed 1 month ago. Patient was seen and examined. Vitals are stable. Patient resting in bed comfortably no acute distress. With the patient's smoking history my main concern would be a head or neck mass causing the patient's symptoms. He has no evidence of respiratory distress and no shortness of breath. Able to tolerate p.o. Basic labs including CBC and BMP will be obtained. CT the neck with contrast will be obtained to evaluate. CBC with no leukocytosis and a normal hemoglobin. BMP with no significant abnormalities. CT of the neck shows heterogeneous enlargement of the right parotid gland with heterogeneous enhancement as well as a lymph node in the anterior triangle of the right side of the neck. A neoplastic process should be ruled out. I updated the patient on the imaging findings. I consulted oncology fast pass and a nurse came down to evaluate the patient and he has an appointment on Tuesday at 9 AM. Patient was given Toradol here for the painful swallowing. He did drive himself here and I was unable to give him narcotics. Patient discharged from the Emergency Department. I do not feel that the patient's evaluation reveals any acute reason for admission at this time. I instructed them to either follow-up with their primary care physician or promptly return to the Emergency Department for reevaluation should symptoms worsen or new symptoms develop. I explained what symptoms would indicate the need to return to the emergency department. Shared decision making was used. The patient voiced understanding of the treatment plan and is agreeable with it. Clinical impression Parotid mass History & Record Review Discussion w/independent historian: Patient Lab Data Attestation: I reviewed the patient's lab results. Labs: Laboratory Results - last 24 hr 04/11/25 08:46 WBC 6.5 RBC 4.18 L Hgb 14.9 Hct 43.2 MCV 103.3 H MCH 35.6 H MCHC 34.5 RDW Std Deviation 50.4 H RDW Coeff of Rebeka 13.2 Plt Count 166 MPV 10.4 Immature Gran % (Auto) 0.200 Neut % (Auto) 33.2 L Lymph % (Auto) 49.6 H Gillespie % (Auto) 15.2 H Eos % (Auto) 0.9 Baso % (Auto) 0.9 Absolute Neuts (auto) 2.2 Absolute Lymphs (auto) 3.23 Nucleated RBC % 0 Sodium 136 Potassium 4.2 Chloride 102 Carbon Dioxide 25.8 Anion Gap 9 BUN 9 Creatinine 0.69 L Estim Creat Clear Calc 111.20 Est GFR (MDRD) Non-Af 107 BUN/Creatinine Ratio 12.6 Glucose 96 Calcium 9.0 Radiography Diagnostic Testing: Clinical Impression(s) from Imaging Studies Soft Tissue Neck CT 04/11/25 08:25 IMPRESSION: Heterogeneous enlargement of the right parotid gland with heterogeneous enhancement as well as a lymph node in the anterior triangle of the right side of the neck. A neoplastic process should be ruled out. Reading Location: [place] [id number] Discharge Plan Triage Chief Complaint: Numb/Ting ED Provider: Kita Yang Dx/Rx/DC Orders Clinical Impression: Parotid mass Prescriptions: No Action lansoprazole 30 MG capsule 30 mg PO DAILY Stand Alone Forms: ED Work / School Excuse Other Ambulatory Orders: Fast Pass: Oncology Referral [facility] (Routine) Facility: [facility] - Location: [facility] Ordered By: Dr. Kita Yang Primary Care Provider: Care Physician,No Primary Referrals: [facility] [Outside] - Keep Lucio appointment Care Physician,No Primary [Primary Care Provider, Medical] Activity Restrictions/Additional Instructions: Go to your appointment on Tuesday at 9 AM as planned. You can take Motrin and Tylenol at home for pain control. Your evaluation in the Emergency Department did not reveal any acute reason for admission. However, I want to emphasize that you may be early in the course of a disease process or illness even if it is not present. For this reason you should follow-up within 24 hours for reevaluation with either your primary care physician or if necessary back here in the Emergency Department. You should return to the Emergency Department immediately if your symptoms worsen or new symptoms develop. Print Language: Belarusian Disposition Disposition: Home, Self Care Discharge Date/Time: 04/11/25 10:54
[2025-04-11 08:54] LABS: Hematocrit 43.2 % (40-54); Hemoglobin 14.9 g/dL (13.0-16.5); Immature Granulocytes Count 0.010 X10^3/uL (0.0-0.0); Mean Corp Hgb Conc 34.5 g/dL (32-36); Mean Corpuscular Volume 103.3 fL (80-94); Mean Platelet Vol. 10.4 fl (6.2-12.0); NRBC Flagged by Analyzer 0 % (0-5); Platelet Count 166 K/mm3 (150-450); RBC Distribution Width CV 13.2 % (11.6-14.6); RBC Distribution Width SD 50.4 fl (35.1-43.9); Red Blood Count 4.18 M/mm3 (4.6-6.2); White Blood Count 6.5 K/mm3 (4.4-11.0)
[2025-04-11 09:18] LABS: Anion Gap 9 (5-15); BUN 9 mg/dL (4-19); BUN/Creat Ratio 12.6 RATIO (10-20); Calcium,Total 9.0 mg/dL (7.6-11.0); Carbon Dioxide 25.8 mmol/L (21.0-32.0); Chloride 102 mmol/L (98-108); Estimated Creatinine Clearance 111.20 ml/min (50-250); Glucose 96 mg/dL (70-99); Potassium 4.2 mmol/L (3.3-5.1)
[2025-04-11 09:30] VITALS: BP 121/81; PULSE 62; RESP 13; TEMP 36.6; O2SAT 100
[2025-04-11 10:02] VITALS: BP 126/81; PULSE 64; RESP 13; TEMP 36.8; O2SAT 100
[2025-04-11 10:41] VITALS: BP 130/93; PULSE 63; RESP 16; TEMP 36.8; O2SAT 100
== END 2025-04-11 10:54 | disposition home or self-care (01) ==
PROVIDERS: Emergency Provider Student in an Organized Health Care Education/Training Program; Visit Provider Student in an Organized Health Care Education/Training Program
DX: K11.8 Other diseases of salivary glands (principal); F17.210 Nicotine dependence, cigarettes, uncomplicated
CPT/HCPCS: 70491; 80048; 85025; 96374; 99283; Q9967; A4216

== ENCOUNTER → 2025-05-07 | Outpatient (CLI) | payer BC, SELFPAY ==
--- NOTE | 2025-05-07 10:00 | PET_ITS ---
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 TECHNIQUE: Procedure Code: PETPTCTINIT Modality: PT Procedure: PET/CT TUMOR BASE -THIGH INIT Following the intravenous administration of radionucleotide, image acquisition on a dedicated PET/CT unit was performed at one hour post injection. A preliminary CT study encompassing the Skull base, neck, chest, abdomen, pelvis, and proximal thighs was performed for purposes of attenuation correction and anatomic localization. The proximal thighs were also included. The patient's blood glucose level was 95 mg/dL (allowable range: 50-180 mg/dL). RADIOPHARMACEUTICAL: 13.17 mCi 18F-FDG (Fluorodeoxyglucose F18) IV was injected into he patient. RADIATION DOSE SUMMARY: Effective Dose: Approximately 7 mSv for a standard whole-body PET scan Organ Doses: Varies by organ, with higher doses typically to the bladder, liver, and brain COMPARISON: COMPARISON FROM CT, PET OR OTHER PERTINENT EXAMS: CT neck of 04/11/2025. FINDINGS: Physiologic uptake: There may be expected metabolic uptake within the brain, tongue and floor of the mouth and larynx/vocal cords, heart, anthony (many normal individuals have hilar uptake in less than 3 nodes with mildly avid hilar nodes less than 2.7 SUV), liver and spleen, system, and GI tract and symmetric muscle uptake. FDG AVID AND NON-AVID LESIONS. Reported avid SUV values (g/mL*) are maximum SUV. NECK: A hypermetabolic soft tissue mass of the right hypopharynx is seen, highly concerning for the presence of malignancy, and with SUV max of 11.4. Also, a subcentimeter hypermetabolic right anterior cervical lymph node is seen at the level of the thyroid cartilage, with SUV max of 7.2. No hypermetabolic activity is seen at either parotid gland. CHEST: Chest wall- There are no significant chest wall abnormalities. Axilla- There are no significant axillary abnormalities. Lung parenchyma- A subcentimeter nodule abutting the minor fissure is seen, probably in the right upper lobe, with hypermetabolic activity, and SUV max of 3.3. This is concerning for possible malignancy. Mediastinum- There are no significant hilar or mediastinal adenopathy. Pleura- There are no significant pleural abnormalities. ABDOMEN: Stomach- No significant abnormalities. Liver- No significant abnormalities. Spleen- No significant abnormalities. Pancrease- No significant abnormalities. Kidneys- No significant abnormalities. Bowel- Normal bowel activity. Spine- No significant abnormalities. PELVIS: [id number] sigmoid diverticulosis. Bowel- Normal physiologic bowel activity is identified. Masses- There are no pelvic masses. Bones- Degenerative changes are seen throughout the spine. With the use of bone window settings, there are no osteolytic or osteoblastic lesions. There are no FDG avid lesions within the visualized portion of the axial skeleton. PET/PET/CT Tumor Base -Thigh Init IMPRESSION: FDG avid- 1. Prominent right hypopharyngeal hypermetabolic mass, concerning for the prese nce of malignancy. Additionally, a subcentimeter right anterior cervical lymph node is concerning for metastatic disease. 2. Small, subcentimeter, right pulmonary hypermetabolic focus, as described, po ssibly representing presence of malignancy. Other: 1. Degenerative changes of the spine are noted. 2. [id number] sigmoid diverticulosis. Please note the low-dose CT scan was performed to facilitate PET image reconstr uction and anatomic localization and does not replace a diagnostic CT. Any diagnostic CT requested and performed at the time of the PET will be reported separately. Reading Location: [place] [id number]
== END | disposition home or self-care (01) ==
LOC: ONC 09:52
PROVIDERS: Referring Provider Otolaryngology; Visit Provider Otolaryngology
DX: C44.42 Squamous cell carcinoma of skin of scalp and neck (principal); R22.1 Localized swelling, mass and lump, neck; R13.12 Dysphagia, oropharyngeal phase
CPT/HCPCS: 78815; A9552